=== PATIENT | female | born 1945 | race Caucasian/White ===

== ENCOUNTER → 2018-02-07 13:50 | Outpatient (CLI) | payer MEDICARE, OTHER, SELFPAY ==
--- NOTE | 2018-02-07 | DI.CT.S_ITS ---
PROCEDURE: CT ABDOMEN PELVIS W CON INDICATIONS: ENTEROGRAPHY ABNORMAL XRAY TECHNIQUE: After the administration of intravenous contrast, 5 mm thick sections acquired from the diaphragm to the symphysis. 5 mm coronal and sagittal reformats were acquired. For radiation dose reduction, the following was used: automated exposure control, adjustment of mA and/or kV according to patient size. COMPARISON: [facility], CR, L-SPINE 2-3 VIEWS, 08/17/2011, 6:55. [facility], RG, XR ABDOMEN 1V, 02/04/2018, 11:13. FINDINGS: Image quality: Excellent. ABDOMEN: Lung bases: Lung bases are clear. Heart size is normal. Solid organs: Liver is normal in size and enhancement. Gallbladder has been. Pneumobilia is present. Pancreas enhances normally. Spleen demonstrates innumerable low attenuation foci predominantly sub-centimeter, with the largest measuring 9 mm. No adrenal nodules. Kidneys demonstrate normal size and enhancement, without hydronephrosis. Peritoneum and bowel: There are scattered, mildly prominent fluid filled loops of small bowel in the anterior abdomen. Previously identified focal U-shaped loop in the left upper quadrant is less prominent. No free fluid or air. Significant stool is present within the rectum and colon. Nodes and vessels: No retroperitoneal or mesenteric adenopathy by size criteria. Aorta and inferior vena cava are normal in size. Miscellaneous: No ventral hernias. Lower lumbar posterior fixation is present. The right pedicular screw at the level of L4-5 and L5-S1 extends slightly beyond the anterior cortex of the vertebral body. PELVIS: Genitourinary: Bladder wall thickness is normal. Miscellaneous: No inguinal hernias or adenopathy. Bones: No suspicious bony lesions. No vertebral body compression fractures. IMPRESSION: 1. Significant colonic stool particularly within the rectum consistent with constipation. 2. Less prominent appearance of fluid filled small bowel loop as described above. However, there are scattered mildly prominent fluid filled loops of small bowel possibly compliance representative of ileus versus partial obstruction. 3. Pneumobilia as above. 4. Innumerable low attenuation foci within the spleen as above. This could be reflective of infection or inflammation. However other etiologies such as neoplasm, particularly up lymphoma should be considered if clinically appropriate. It is noted that there is no visualized adenopathy. Dictated by: Amanda Higgins M.D. on 02/07/2018 at 16:39 Approved by: Amanda Higgins M.D. on 02/07/2018 at 16:48
[2018-02-07 14:30] LABS: Estimated Glomerular Filt Rate > 60.0 mL/min (>60)
== END ==
PROVIDERS: Visit Provider Internal Medicine Gastroenterology
DX: R93.5 Abnormal findings on diagnostic imaging of other abdominal regions, including retroperitoneum (principal); K83.8 Other specified diseases of biliary tract
CPT/HCPCS: 36415; 74177; 82565

== ENCOUNTER 2018-09-24 21:19 | Emergency (ER) | payer MEDICARE, OTHER, SELFPAY ==
[2018-09-24 21:29] VITALS: BP 148/124; PULSE 85; RESP 15; TEMP 37.8; O2SAT 94
[2018-09-24 22:00] LABS: WBC Urine None Seen (0-5/HPF)
[2018-09-24 22:01] LABS: Appearance Urine UA CLEAR; Color Urine UA ORANGE
[2018-09-24] MEDS: FAMOTIDINE 20 MG/50 ML PIGGYBACK 200 MG IV (22:05)
[2018-09-24 22:08] LABS: Culture Indicated Urine Cult Not Indicated; RBC Urine 0-1/HPF (0-5/HPF)
[2018-09-24] MEDS: SODIUM CHLORIDE 0.9% 1,000 ML 1000 ML IV (22:08)
[2018-09-24] MEDS: diphenhydrAMINE 50 MG/ML VIAL 25 MG IV (22:08)
[2018-09-24 22:09] LABS: Bacteria Urine Occasional (0-1)
--- NOTE | 2018-09-24 22:25 | ED.ALLEREA ---
HPI - Allergic Reaction General Chief complaint: Allergic Reaction Stated complaint: MS FLARE Time Seen by Provider: 09/24/18 21:22 Source: patient Mode of arrival: wheelchair Limitations: no limitations History of Present Illness HPI narrative: 73-year-old female, former smoker with history of MS presents with a chief complaint of ongoing MS flare for the past few months and a possible allergic reaction to an antibiotic she was prescribed last week. This current MS flare started at least a month or 2 ago and includes increased spasticity and fatigue which is her normal presentation. She was seen and evaluated last week at an outside facility and had 3 days of IV Solu-Medrol ( 1000 mg per day ) and she was diagnosed with a urinary tract infection. She was prescribed Bactrim and had for gotten she has an allergy to sulfa. Since then she has been switch from Bactrim and placed nitrofurantoin. She has some redness and itching to her hands and a bit of his scratchy itchy rash on her abdomen. She denies any trouble swallowing or difficulty breathing. She has had no vomiting or diarrhea. She does have a low-grade fever and some back pain.. Her normal MS flare is fatigue and muscle spasm, but she has had at least one episode similar to this about a year or two ago. She denies any alcohol or street drugs. She takes no antipsychotics or other mental health drugs. MD complaint: allergic reaction Onset (ago): day(s) Exposure: medication Known history of allergy to: sulfa Symptoms: rash and itching Severity: mild Treatment prior to arrival: none Previous Allergic Reaction History: none Related Data Home Medications Medication Instructions Recorded Confirmed ALBUTEROL SULFATE (Ventolin / 0 INH PRN #0 02/21/06 Proventil) CLONAZEPAM (Klonopin) 0 PO PRN #0 02/21/06 Cetirizine Hydrochloride (Zyrtec) 10 mg PO #0 02/21/06 Esomeprazole Magnesium (Nexium) 40 mg PO BID #0 02/21/06 FLUTIC/SALMET 100/50 MCG (Advair 1 dose INH BID #0 02/21/06 100-50 Diskus) FUROSEMIDE (Lasix) 20 PO Q DAY #0 02/21/06 HYOSCYAMINE SULFATE (Levsin) 0.125 mg PO Q4HP #0 02/21/06 Oxycodone (Roxicodone) 5 mg PO PRN #0 02/21/06 POTASSIUM CHLORIDE (K-Dur) 40 meq PO BID #0 02/21/06 Venlafaxine Hydrochloride (Effexor) 75 mg PO Q DAY #0 02/21/06 [AVINZA] 3 OR BID #0 02/21/06 [COPAXINE] IM Q DAY #0 02/21/06 [PROVIGIL] PRN #0 02/21/06 Allergies Allergy/AdvReac Type Severity Reaction Status Date / Time No Known Drug Allergies Allergy Verified 09/24/18 21:28 Review of Systems Constitutional Denies chills, Denies fever(s), Denies lethargy and Denies weakness Comments: fatigue Eyes Denies change in vision, Denies eye discharge, Denies irritation and Denies loss of vision ENT Ears, Nose, Mouth, and Throat: Denies change in voice, Denies neck pain and Denies sore throat Cardiovascular Denies chest pain, Denies irregular heart rhythm, Denies lightheadedness, Denies palpitations, Denies dyspnea, Denies dyspnea on exertion and Denies orthopnea Respiratory Denies cough, Denies dyspnea, Denies dyspnea on exertion and Denies wheezing Gastrointestinal Gastrointestinal: Denies abdominal pain, Denies change in bowel habits, Denies diarrhea, Denies nausea and Denies vomiting Genitourinary Denies hematuria, Denies flank pain, Denies urinary incontinence and Denies urinary urgency Musculoskeletal Denies neck pain Comments: spasticity, ataxia Integumentary/Breasts Reports pruritus, Denies erythema, Reports rash and Denies wounds Neurologic Denies confusion, Denies loss of vision and Denies weakness Psychiatric Denies anxiety, Denies confusion, Denies depression, Denies homicidal ideation and Denies suicidal ideation Endocrine Denies palpitations Hematologic/Lymphatic Denies easy bruising Allergic/Immunologic Denies wheezing PFSH Medical History Multiple sclerosis (Acute) Exam Narrative Exam Narrative: 73-year-old female, restless, alert and oriented Initial Vital Signs Initial Vital Signs: Vital Signs Temperature 100.1 F H 09/24/18 21:29 Pulse Rate 85 09/24/18 21:29 Respiratory Rate 15 09/24/18 21:29 Blood Pressure 148/124 H 09/24/18 21:29 Pulse Oximetry 94 09/24/18 21:29 Const General: cooperative, well developed, in distress and disheveled Nutritional Appearance: well nourished Orientation: alert, awake, oriented x3 and not confused [facility] Head: normocephalic and atraumatic Ears: external ears normal Nose: external nose normal and No nasal discharge Face and sinus: sinuses nontender, face symmetric, no sinus tenderness and No dry mucous membranes Mouth: oral mucosae normal Eyes General: appearance normal, both eyes and all related structures Eyelids: eyelids normal Conjunctivae: conjunctivae normal Sclera: sclerae normal Pupils: PERRL EOM: EOM intact bilaterally Neck Neck: normal visual inspection, trachea midline, No lymphadenopathy, No midline deformity and No JVD Lymphatic: No lymphedema Chest Chest: normal inspection of the chest Resp Effort & Inspection: normal respiratory effort, able to speak in complete sentences, no respiratory distress and no use of accessory muscles Auscultation: clear to auscultation bilaterally, no rales, no rhonchi and no wheezes GI Inspection: non-distended Palpation: soft, no hepatosplenomegaly, No guarding, No pulsatile mass and No tender Auscultation: normal bowel sounds Back/Spine/Pelvis Back: No CVA tenderness Cervical Spine: cervical ROM normal and No pain with cervical ROM Thoracic/Lumbar Spine: thoracic and lumbar spine normal to inspection Skin General: no rashes or lesions noted, No jaundice and No petechiae Rashes: rashes noted ( minimal erythema to bilateral hands and abdomen, no urticaria) Neuro General: alert, awake, oriented x3 and gait abnormal Cranial Nerves: CN's II-XI intact bilaterally Cognition: normal cognition Speech: speech normal Gait: ataxic Sensory Exam: no sensory deficits noted Extrem General: full ROM, no clubbing, cyanosis or edema, no pedal edema and no calf tenderness Psych Appearance: well kempt Mental Status: mental status grossly normal Attitude: cooperative Thought Content: normal and suicidality Judgment: judgment good Course Orders Ordered: ED Orders 09/24/18 21:45 Urinalysis and Microscopic Stat 09/24/18 22:06 Complete Blood Count AUTO DIFF Stat Comprehensive Metabolic Panel Stat Procalcitonin Stat 09/25/18 00:24 Troponin & CK Cardiac Panel Stat Discontinued Medications Diphenhydramine HCl (Benadryl) 25 mg IV NOW ONE Stop: 09/24/18 21:46 Last Admin: 09/24/18 22:08 Dose: 25 mg Sodium Chloride (Normal Saline 0.9%) 1,000 mls @ 1,000 mls/hr IV BOLUS ONE Stop: 09/24/18 22:44 Last Infusion: 09/25/18 01:33 Dose: 1,000 mls/hr Admin: 09/24/18 22:08 Dose: 1,000 mls/hr Famotidine (Pepcid) 20 mg in 50 mls @ 200 mls/hr IV NOW ONE Stop: 09/24/18 21:59 Last Infusion: 09/24/18 22:20 Dose: 200 mls/hr Admin: 09/24/18 22:05 Dose: 200 mls/hr Methylprednisolone 1,000 mg/ (Sodium Chloride) 258 mls @ 258 mls/hr IV NOW ONE Stop: 09/24/18 22:22 Last Infusion: 09/24/18 23:48 Dose: 258 mls/hr Admin: 09/24/18 22:35 Dose: 258 mls/hr Methylprednisolone (Solu-Medrol 125 Mg Vial) 1,000 mg IV NOW ONE Stop: 09/24/18 21:46 Last Admin: 09/24/18 22:23 Dose: Reevaluation(s) Reevaluation #1: patient shows tremendous improvement of movement disorder after steroids, but still has trouble ambulating. Call to Dr. Tung Kay's office and his partner Dr. Payne called back. She suggests that though this isn't typical presentation of MS flare the patient has had one similar episode and she improved with steroids, so if she is well enough she may go home. Reevaluation #2: patient is unsafe for discharge given difficulty ambulating. Call to our hospitalist whom is not comfortable keeping patient here given lack of neurology. Call to [facility] and they have paged Dr. Tika Sanchez prior to hospitalist Reevaluation #3: Called the patient room. She is feeling much better, ambulating without any apparent difficulty. She is awake, alert and oriented. She has full capacity to make her own decisions. She states that she no longer wishes to pursue transfer. She refuses to stay here and demands that she goes home. She is not making any anger your on reasonable request. She does states she has been dealing with this for a very long time and feels much better and wants to be at home. She has multiple family members that can be with her at home. She understands that she may return immediately for any change of heart. She has filled out [employer] [facility] [employer] paperwork. I have called [facility] and cancel transfer process Vital Signs - 8 hr 09/24/18 21:29 09/24/18 23:00 09/25/18 01:59 Temperature 100.1 F H 98.9 F Pulse Rate 85 70 88 Respiratory Rate 15 18 18 Blood Pressure 148/124 H Blood Pressure [Right Arm] 95/52 L 115/45 L Pulse Oximetry 94 94 96 MDM - Allergic Reaction Lab Data Result diagrams: 09/24/18 22:06 09/24/18 22:06 Lab Results 09/24/18 09/24/18 09/24/18 Range/Units 21:45 22:06 22:06 WBC 7.4 (4.5-11.0) X10^3/uL RBC 4.20 (4.0-5.2) X10^6/uL Hgb 12.1 (12.0-16.0) g/dL Hct 36.1 (36-46) % MCV 86.1 (80-100) fL MCH 28.8 (26-34) PG MCHC 33.4 (30-36) % RDW 14.8 (11.6-14.8) % Plt Count 188 (150-400) X10^3/uL Neut % (Auto) 74.1 (50-75) % Lymph % (Auto) 8.2 L (25-40) % [place] % (Auto) 15.4 H (3-14) % Eos % (Auto) 2.2 (2-4) % Baso % (Auto) 0.1 (0-2) % Neut # (Auto) 5500 (3845-6333) /uL Lymph # (Auto) 600 L (5555-9474) /uL [place] # (Auto) 1100 H (0-900) /uL Eos # (Auto) 200 (0-450) /uL Baso # (Auto) 0 (0-100) /uL Sodium (137-145) mmol/L Potassium (3.4-5.1) mmol/L Chloride (98-107) mmol/L Carbon Dioxide (22-32) mmol/L BUN (7-17) mg/dL Creatinine (0.52-1.04) mg/dL Estimated GFR (>60) mL/min BUN/Creatinine Ratio (6-22) Glucose (80-110) mg/dL Calcium (8.4-10.2) mg/dL Total Bilirubin (0.2-1.3) mg/dL AST (14-36) IU/L ALT (9-52) IU/L Alkaline Phosphatase (38-126) U/L Total Creatine Kinase (30-135) U/L CK-MB (CK-2) (<2.37) ng/mL CK-MB (CK-2) Rel Index (1.5-5.0) % Troponin I (0.01-0.034) ng/mL Total Protein (6.3-8.2) g/dL Albumin (3.5-5.0) g/dL Globulin (1.7-4.1) g/dL Albumin/Globulin Ratio (1.0-2.8) Procalcitonin 0.06 (<0.5) ng/mL Urine Color [place] Urine Appearance Clear Urine pH 7.0 (4.5-8.0) Ur Specific [place] 1.010 (1.000-1.035) Urine Protein (Negative) Urine Glucose (UA) TNP Urine Ketones TNP Urine Occult Blood TNP Urine Nitrate TNP Urine Bilirubin TNP Urine Urobilinogen TNP Ur Leukocyte Esterase TNP Urine RBC 0-1/hpf (0-5/HPF) Urine WBC None seen (0-5/HPF) Urine Bacteria Occasional (0-1) (None) Ur Culture Indicated? Cult not indicated 09/24/18 09/24/18 Range/Units 22:06 22:06 WBC (4.5-11.0) X10^3/uL RBC (4.0-5.2) X10^6/uL Hgb (12.0-16.0) g/dL Hct (36-46) % MCV (80-100) fL MCH (26-34) PG MCHC (30-36) % RDW (11.6-14.8) % Plt Count (150-400) X10^3/uL Neut % (Auto) (50-75) % Lymph % (Auto) (25-40) % [place] % (Auto) (3-14) % Eos % (Auto) (2-4) % Baso % (Auto) (0-2) % Neut # (Auto) (7282-9006) /uL Lymph # (Auto) (1326-4646) /uL [place] # (Auto) (0-900) /uL Eos # (Auto) (0-450) /uL Baso # (Auto) (0-100) /uL Sodium 138 (137-145) mmol/L Potassium 4.2 (3.4-5.1) mmol/L Chloride 102 (98-107) mmol/L Carbon Dioxide 27 (22-32) mmol/L BUN 18 H (7-17) mg/dL Creatinine 0.90 (0.52-1.04) mg/dL Estimated GFR > 60.0 (>60) mL/min BUN/Creatinine Ratio 20.0 (6-22) Glucose 87 (80-110) mg/dL Calcium 9.0 (8.4-10.2) mg/dL Total Bilirubin 0.6 (0.2-1.3) mg/dL AST 30 (14-36) IU/L ALT 28 (9-52) IU/L Alkaline Phosphatase 115 (38-126) U/L Total Creatine Kinase 644 H (30-135) U/L CK-MB (CK-2) 5.43 H (<2.37) ng/mL CK-MB (CK-2) Rel Index 0.8 L (1.5-5.0) % Troponin I 0.013 (0.01-0.034) ng/mL Total Protein 6.6 (6.3-8.2) g/dL Albumin 4.1 (3.5-5.0) g/dL Globulin 2.5 (1.7-4.1) g/dL Albumin/Globulin Ratio 1.6 (1.0-2.8) Procalcitonin (<0.5) ng/mL Urine Color Urine Appearance Urine pH (4.5-8.0) Ur Specific [place] (1.000-1.035) Urine Protein (Negative) Urine Glucose (UA) Urine Ketones Urine Occult Blood Urine Nitrate Urine Bilirubin Urine Urobilinogen Ur Leukocyte Esterase Urine RBC (0-5/HPF) Urine WBC (0-5/HPF) Urine Bacteria (None) Ur Culture Indicated? Discharge Plan Departure Patient Disposition: Left Against Medical Advice Clinical Impression: Multiple sclerosis exacerbation Instructions: Multiple Sclerosis -- Adult Activity Restrictions/Additional Instructions: *You have been diagnosed with [ Acute MS Flare ] *What to do: *Follow up with your Neurologist as soon as possible, call for an appointment. Let them know you were seen in the Emergency Department and that we ask that you be seen in follow up *Return to ER if you should have any new, worsening or concerning symptoms Prescriptions: No Action [AVINZA] 3 OR BID Qty: 0 RF: 0 Esomeprazole Magnesium (Nexium) 40 mg PO BID Qty: 0 RF: 0 [COPAXINE] IM Q DAY Qty: 0 RF: 0 FUROSEMIDE (Lasix) 20 PO Q DAY Qty: 0 RF: 0 POTASSIUM CHLORIDE (K-Dur) 40 meq PO BID Qty: 0 RF: 0 Venlafaxine Hydrochloride (Effexor) 75 mg PO Q DAY Qty: 0 RF: 0 HYOSCYAMINE SULFATE (Levsin) 0.125 mg PO Q4HP Qty: 0 RF: 0 CLONAZEPAM (Klonopin) PO PRN Qty: 0 RF: 0 Cetirizine Hydrochloride (Zyrtec) 10 mg PO Qty: 0 RF: 0 [PROVIGIL] PRN Qty: 0 RF: 0 Oxycodone (Roxicodone) 5 mg PO PRN Qty: 0 RF: 0 ALBUTEROL SULFATE (Ventolin / Proventil) INH PRN Qty: 0 RF: 0 FLUTIC/SALMET 100/50 MCG (Advair 100-50 Diskus) 1 dose INH BID Qty: 0 RF: 0 Stand Alone Forms: Against Medical Advice
[2018-09-24 22:32] LABS: Add Manual Diff / Slide Review NO; Basophils Absolute Auto 0 /uL (0-100); Basophils Percent Auto 0.1 % (0-2); Eosinophils Absolute Auto 200 /uL (0-450); Eosinophils Percent Auto 2.2 % (2-4); Hematocrit 36.1 % (36-46); Hemoglobin 12.1 g/dL (12.0-16.0); Lymphocytes Absolute Auto 600 /uL (1100-4500); Lymphocytes Percent Auto 8.2 % (25-40); Mean Corpuscular HGB Conc 33.4 % (30-36); Mean Corpuscular Hemoglobin 28.8 PG (26-34); Mean Corpuscular Volume 86.1 fL (80-100); Monocytes Absolute Auto 1100 /uL (0-900); Monocytes Percent Auto 15.4 % (3-14); Neutrophils Absolute Auto 5500 /uL (1500-7000); Neutrophils Percent Auto 74.1 % (50-75); Platelet Count 188 X10^3/uL (150-400); Red Cell Distribution Width 14.8 % (11.6-14.8); White Blood Cell Count 7.4 X10^3/uL (4.5-11.0)
[2018-09-24] MEDS: methylPREDNISolone 1,000 MG in SODIUM CHLORIDE 0.9% 250 ML 258 ML IV (22:35)
[2018-09-24 22:40] LABS: Alanine Aminotransferase 28 IU/L (9-52); Albumin 4.1 g/dL (3.5-5.0); Albumin Globulin Ratio 1.6 (1.0-2.8); Alkaline Phosphatase 115 U/L (38-126); Aspartate Aminotransferase 30 IU/L (14-36); Bilirubin Total 0.6 mg/dL (0.2-1.3); Blood Urea Nitrogen 18 mg/dL (7-17); Carbon Dioxide 27 mmol/L (22-32); Chloride 102 mmol/L (98-107); Estimated Glomerular Filt Rate > 60.0 mL/min (>60); Globulin 2.5 g/dL (1.7-4.1); Glucose 87 mg/dL (80-110); HEMOLYSIS < 15 (0-50); Potassium 4.2 mmol/L (3.4-5.1); Sodium 138 mmol/L (137-145); Total Protein 6.6 g/dL (6.3-8.2)
[2018-09-24 23:00] VITALS: BP 95/52; PULSE 70; RESP 18; O2SAT 94
[2018-09-24 23:25] LABS: Procalcitonin 0.06 ng/mL (<0.5)
[2018-09-25 00:39] LABS: Creatine Kinase 644 U/L (30-135)
--- NOTE | 2018-09-25 00:41 | PC.NURSE ---
Patient was able to walk to the bathroom, going very slowly and swaying a lot more than her usual she was saying. Patient self cathed in the bathroom after not being able to go.
[2018-09-25 00:52] LABS: Troponin I 0.013 ng/mL (0.01-0.034)
[2018-09-25 00:54] LABS: CKMB % Relative Index 0.8 % (1.5-5.0); Creatine Kinase MB 5.43 ng/mL (<2.37)
--- NOTE | 2018-09-25 00:55 | PC.NURSE ---
PT states possible allergic reaction to Bactrim for UTI. PT forgot she has allergy to sulfa, was switched from Bactrim and placed nitrofurantoinan last week. Reports itching to hands and small amount of itching to abdomen, speaking in full sentances, denies difficulty breathing or CP. Hands appear red and pt has small red irritation to abdomen. Pt also reports having an MS flare for the past couple of months that has caused her increased fatigue and muscle spasticity. Pt has moments of ataxia and moments when she can focus and control her spasticity. Pt states she has no new pain and reports chronic back pain. Pupils are equal and reactive bi laterally.
[2018-09-25 01:59] VITALS: BP 115/45; PULSE 88; RESP 18; TEMP 37.2; O2SAT 96
--- NOTE | 2018-09-25 02:08 | PC.NURSE ---
in room pt stating she's feeling better and wants to go home. Pt declining hospital admission or transfer. Friend at bedside states she's willing to take pt home.
== END 2018-09-25 02:20 | disposition left against medical advice (07) ==
PROVIDERS: Emergency Provider Emergency Medicine
DX: G35 Multiple sclerosis (principal)
CPT/HCPCS: 36591; 80053; 81001; 82550; 82553; 84145; 84484; 85025; 96361; 96365; 96367; 96375; 99284; J1200; J2930

== ENCOUNTER 2019-10-17 14:04 | Emergency (ER) | payer MEDICARE, OTHER, SELFPAY ==
[2019-10-17 14:35] VITALS: BP 147/65; PULSE 89; RESP 16; TEMP 37; O2SAT 98; BMI 20.9
--- NOTE | 2019-10-17 14:48 | DI.RAD.S_ITS ---
PROCEDURE: XR SHOULDER LT MIN 2V INDICATIONS: hit left arm 10days ago increase pain TECHNIQUE: 3 views of the shoulder were acquired. COMPARISON: [facility], CR, CHEST 2 VIEW, 08/17/2011, 6:44. FINDINGS: Bones: No displaced fractures or dislocations are identified. No suspicious osseous lesions are present. There mild degenerative changes of the glenohumeral joint. Moderate degenerative changes appear to be present involving the acromioclavicular joint. Soft tissues: Homogeneous calcifications are seen overlying the greater tuberosity of the humeral head, which are predominantly evident posteriorly. Aortic atherosclerosis is incidentally noted. Otherwise, the overlying soft tissues are unremarkable. IMPRESSION: 1. 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 No fractures. 2. Calcific tendinitis involving the infraspinatus tendon is suspected. Please correlate clinically. Dictated by: Moreno Ríos M.D. on 10/17/2019 at 14:51 Approved by: Moreno Ríos M.D. on 10/17/2019 at 14:53
--- NOTE | 2019-10-17 14:49 | DI.RAD.S_ITS ---
PROCEDURE: XR HUMERUS LT 2V INDICATIONS: left arm injury 10days ago. TECHNIQUE: 2 views of the humerus were acquired. COMPARISON: None. FINDINGS: Bones: No fractures or dislocations. No suspicious bony lesions. Soft tissues: Again, homogeneous calcifications overlying the posterior margin of the humeral head is identified. Otherwise, the overlying soft tissues are unremarkable. IMPRESSION: No acute fractures of the left humerus. Dictated by: Moreno Ríos M.D. on 10/17/2019 at 14:53 Approved by: Moreno Ríos M.D. on 10/17/2019 at 14:53
[2019-10-17 16:17] VITALS: BP 148/70; PULSE 84; RESP 20; O2SAT 93
--- NOTE | 2019-10-17 16:18 | ED.UPPEXIN ---
HPI - Extremity Injury (Upper) General Chief Complaint: Extremity Injury, Upper Stated Complaint: left shoulder pain, passing out from pain Time Seen by Provider: 10/17/19 16:17 Source: patient Mode of arrival: Ambulatory Limitations: no limitations History of Present Illness HPI narrative: 74-year-old female smoker with history of MS and chronic pain presents with a friend in the chief complaint of gradually worsening left shoulder pain. Few days ago she was walking and ran her shoulder into a doorjamb and had some pain but did not necessarily think too much of it. Her symptoms improved but then few days later her pain started worsening. She has severe pain with any range of motion. She denies any numbness, tingling or weakness. She has significant pain and is concerned since she has a fracture. MD complaint: injury to: left and shoulder Onset (ago): day(s) Other injuries: none Handedness: right Place: home Severity: moderate Relieving factors: immobilization and rest Exacerbating factors: movement of extremity Context: direct blow Associated symptoms: denies other symptoms Related Data Home Medications Medication Instructions Recorded Confirmed ALBUTEROL SULFATE (Ventolin / 0 INH PRN #0 02/21/06 Proventil) CLONAZEPAM (Klonopin) 0 PO PRN #0 02/21/06 Cetirizine Hydrochloride (Zyrtec) 10 mg PO #0 02/21/06 Esomeprazole Magnesium (Nexium) 40 mg PO BID #0 02/21/06 FLUTIC/SALMET 100/50 MCG (Advair 1 dose INH BID #0 02/21/06 100-50 Diskus) FUROSEMIDE (Lasix) 20 PO Q DAY #0 02/21/06 HYOSCYAMINE SULFATE (Levsin) 0.125 mg PO Q4HP #0 02/21/06 Oxycodone (Roxicodone) 5 mg PO PRN #0 02/21/06 POTASSIUM CHLORIDE (K-Dur) 40 meq PO BID #0 02/21/06 Venlafaxine Hydrochloride (Effexor) 75 mg PO Q DAY #0 02/21/06 [AVINZA] 3 OR BID #0 02/21/06 [COPAXINE] IM Q DAY #0 02/21/06 [PROVIGIL] PRN #0 02/21/06 Previous Rx's Medication Instructions Recorded ketorolac 10 mg PO Q6H PRN #14 tab 10/17/19 Allergies Allergy/AdvReac Type Severity Reaction Status Date / Time baclofen Allergy Severe Hallucinati Verified 10/17/19 14:47 ng levofloxacin [From Levaquin] Allergy Severe Joint Pain Verified 10/17/19 14:47 Penicillins Allergy Severe Hives Verified 10/17/19 14:46 Sulfa (Sulfonamide Allergy Severe Anaphylaxis Verified 10/17/19 14:47 Antibiotics) Review of Systems Constitutional Constitutional: Denies chills, Denies fatigue, Denies fever(s), Denies frequent falls, Denies lethargy and Denies weakness Eyes Eyes: Denies change in vision, Denies eye discharge, Denies irritation and Denies loss of vision ENT Ears, Nose, Mouth, and Throat: Denies change in voice, Denies dizziness, Denies neck pain, Denies sore throat and Denies throat swelling Cardiovascular Cardiovascular: Denies chest pain, Denies irregular heart rhythm, Denies lightheadedness, Denies palpitations, Denies dyspnea, Denies dyspnea on exertion and Denies orthopnea Respiratory Respiratory: Denies cough, Denies dyspnea, Denies dyspnea on exertion and Denies wheezing Gastrointestinal Gastrointestinal: Denies abdominal pain, Denies change in bowel habits, Denies diarrhea, Denies nausea and Denies vomiting Genitourinary Genitourinary: Denies hematuria, Denies flank pain, Denies urinary incontinence and Denies urinary urgency Musculoskeletal Musculoskeletal: Denies back pain, Reports limited range of motion, Denies muscle weakness, Denies neck pain, Denies numbness and Denies tingling Integumentary/Breasts Skin/Breast: Denies pruritus, Denies erythema, Denies rash and Denies wounds Neurologic Neurologic: Denies behavioral changes, Denies confusion, Denies dizziness, Denies frequent falls, Denies loss of vision, Denies numbness, Denies tingling and Denies weakness Psychiatric Psychiatric: Denies anxiety, Denies behavioral changes, Denies confusion, Denies depression, Denies homicidal ideation and Denies suicidal ideation Endocrine Endocrine: Denies fatigue, Denies flushing and Denies palpitations Hematologic/Lymphatic Hematologic/Lymphatic: Denies easy bruising Allergic/Immunologic Allergic/Immunologic: Denies urticaria, Denies throat swelling and Denies wheezing Patient History Medical History Multiple sclerosis (Acute) tobacco type: cigars Substance Use Type: does not use Exam Narrative Exam Narrative: GEN: AOx3 and in mild distress EYES: Pupils are equal, round, and reactive to light and accommodation. Extraoccular muscles are intact bilaterally. There is no subconjunctival hemorrhage or exudate. CHEST: Lungs are clear to auscultation bilaterally and free of wheezes, rales, or rhonchi. Heart rate is regular rhythm, there are no murmurs, clicks, rubs, or gallops. There is no chest wall tenderness. ABD: Abdomen is soft and nontender. There is no guarding or rebound. Bowel sounds are normal in all 4 quadrants. There is no mass or organomegaly. EXT: Decreased range of motion of left shoulder secondary to pain. No pain along the palpation of clavicle. No pain along distal humerus, elbow or wrist. She has full strength with flexion extension of elbow and wrist. Full strength with extension of fingers and use of lumbar rolls. No numbness, tingling or weakness. Cap refill and radial pulses fully intact. SKIN: Warm, pink, and dry. No erythema or rash Initial Vital Signs Initial Vital Signs: Vital Signs Temperature 98.6 F 10/17/19 14:35 Pulse Rate 89 10/17/19 14:35 Respiratory Rate 16 10/17/19 14:35 Blood Pressure 147/65 H 10/17/19 14:35 Pulse Oximetry 98 10/17/19 14:35 Procedures Orthopedic Splinting/Casting Injury #1: Side: left Upper Extremity Injury Location: shoulder Upper Extremity Immobilizer: sling/shoulder immobilizer Post splinting neuro exam: intact Post splinting vascular exam: intact Placed by: Nursing Course Orders Ordered: ED Orders 10/17/19 14:48 XR shoulder LT min 2V Stat 10/17/19 14:49 XR humerus LT 2V Stat Discontinued Medications Ketorolac Tromethamine (Toradol) 60 mg IM NOW ONE Stop: 10/17/19 16:30 Vital Signs Vital signs: Vital Signs - 8 hr 10/17/19 14:35 10/17/19 16:17 Temperature 98.6 F Pulse Rate 89 84 Respiratory Rate 16 20 Blood Pressure 147/65 H Blood Pressure [Right Arm] 148/70 H Pulse Oximetry 98 93 MDM - Extremity Injury (Upper) Imaging Data Extremity x-ray #1: Radiologist's Impression: [address] [address] XRay Report Signed Patient: Teressa Baca R#: [id number] : 7Acct:[id number] Age/Sex: 74 / FDate of Service: 10/17/19 Loc: ED Accession Number: [id number] Procedure: XR humerus LT 2V Ordering Provider: Moe Reyes D.O. PROCEDURE: XR HUMERUS LT 2V INDICATIONS: left arm injury 10days ago. TECHNIQUE: 2 views of the humerus were acquired. COMPARISON: None. FINDINGS: Bones: No fractures or dislocations. No suspicious bony lesions. Soft tissues: Again, homogeneous calcifications overlying the posterior margin of the humeral head is identified. Otherwise, the overlying soft tissues are unremarkable. IMPRESSION: No acute fractures of the left humerus. Dictated by: Moreno Ríos M.D. on 10/17/2019 at 14:53 Approved by: Moreno Ríso M.D. on 10/17/2019 at 14:[address] [address] XRay Report Signed Patient: Teressa Baca R#: [id number] : 7At:[id number] Age/Sex: 74 / FDate of Service: 10/17/19 Loc: ED Accession Number: [id number] Procedure: XR shoulder LT min 2V Ordering Provider: Moe Reyes D.O. PROCEDURE: XR SHOULDER LT MIN 2V INDICATIONS: hit left arm 10days ago increase pain TECHNIQUE: 3 views of the shoulder were acquired. COMPARISON: [facility], CR, CHEST 2 VIEW, 08/17/2011, 6:44. FINDINGS: Bones: No displaced fractures or dislocations are identified. No suspicious osseous lesions are present. There mild degenerative changes of the glenohumeral joint. Moderate degenerative changes appear to be present involving the acromioclavicular joint. Soft tissues: Homogeneous calcifications are seen overlying the greater tuberosity of the humeral head, which are predominantly evident posteriorly. Aortic atherosclerosis is incidentally noted. Otherwise, the overlying soft tissues are unremarkable. IMPRESSION: 1. Hhdu-cy-[id number] degenerative changes of the left shoulder joints. No fractures. 2. Calcific tendinitis involving the infraspinatus tendon is suspected. Please correlate clinically. Dictated by: Moreno Ríos M.D. on 10/17/2019 at 14:51 Approved by: Moreno Ríos M.D. on 10/17/2019 at 14:53 Discharge Plan Departure Patient Disposition: Home Clinical Impression: Left shoulder strain Qualifiers: Encounter type: initial encounter Qualified Code(s): S46.912A - Strain of unspecified muscle, fascia and tendon at shoulder and upper arm level, left arm, initial encounter Instructions: DI for Shoulder Sprain Activity Restrictions/Additional Instructions: *You have been diagnosed with [shoulder pain, possible sprain versus calcific tendonitis versus rotator cuff injury.] *What to do: *Take medications as directed *Follow up with [facility] in 2-3 days, call for an appointment. Let them know you were seen in the Emergency Department and that we ask that you be seen in follow up *Return to ER if you should have any new, worsening or concerning symptoms Prescriptions: New ketorolac 10 mg tablet 10 mg PO Q6H PRN (Reason: pain) Qty: 14 RF: 0 No Action [AVINZA] 3 OR BID Qty: 0 RF: 0 Esomeprazole Magnesium (Nexium) 40 mg PO BID Qty: 0 RF: 0 [COPAXINE] IM Q DAY Qty: 0 RF: 0 FUROSEMIDE (Lasix) 20 PO Q DAY Qty: 0 RF: 0 POTASSIUM CHLORIDE (K-Dur) 40 meq PO BID Qty: 0 RF: 0 Venlafaxine Hydrochloride (Effexor) 75 mg PO Q DAY Qty: 0 RF: 0 HYOSCYAMINE SULFATE (Levsin) 0.125 mg PO Q4HP Qty: 0 RF: 0 CLONAZEPAM (Klonopin) 0 PO PRN Qty: 0 RF: 0 Cetirizine Hydrochloride (Zyrtec) 10 mg PO Qty: 0 RF: 0 [PROVIGIL] PRN Qty: 0 RF: 0 Oxycodone (Roxicodone) 5 mg PO PRN Qty: 0 RF: 0 ALBUTEROL SULFATE (Ventolin / Proventil) 0 INH PRN Qty: 0 RF: 0 FLUTIC/SALMET 100/50 MCG (Advair 100-50 Diskus) 1 dose INH BID Qty: 0 RF: 0 Referrals: Haleigh Fox [Primary Care Provider] - Cary Gresham MD [Physician] -
[2019-10-17] MEDS: KETOROLAC 60 MG/2 ML VIAL IM (17:05)
== END 2019-10-17 16:58 | disposition home or self-care (01) ==
PROVIDERS: Emergency Provider Emergency Medicine; PCP Internal Medicine
DX: S46.912A Strain of unspecified muscle, fascia and tendon at shoulder and upper arm level, left arm, initial encounter (principal); W22.8XXA Striking against or struck by other objects, initial encounter
CPT/HCPCS: 73030; 73060; 96372; 99283; J1885

== ENCOUNTER → 2019-10-23 17:11 | Outpatient (CLI) | payer MEDICARE, OTHER, SELFPAY ==
--- NOTE | 2019-10-23 17:13 | DI.MRI.S_ITS ---
PROCEDURE: MR CERVICAL SPINE WO CON INDICATIONS: cervicalgia TECHNIQUE: Noncontrast sagittal T1 spin echo and T2 fast spin echo, sagittal STIR, foraminal oblique sagittal T2 fast spin echo, and axial gradient echo or T2 fast spin echo through the cervical spine. COMPARISON: None. FINDINGS: Image quality: Excellent. Alignment and Curvature: Mild degenerative anterolisthesis of C3 on C4 measuring 3 mm. Bone Marrow: Marrow demonstrates normal overall signal. Spinal Cord: Visualized spinal cord has normal size and signal. No cerebellar tonsillar herniation. Paraspinous Soft Tissues: No paravertebral masses. Prevertebral soft tissues are normal in thickness. C2-C3: No canal stenosis. Left facet hypertrophy and uncovertebral joint hypertrophy results in moderate left foraminal narrowing and mild flattening deformity on the exiting left C3 nerve root. C3-C4: Minimal central posterior disc protrusion. Facet and ligament hypertrophy. Mild canal stenosis. There is mild to moderate right foramina narrowing secondary to facet hypertrophy and mild flattening deformity on the exiting right C4 nerve root. Marked left facet and uncovertebral joint hypertrophy results in moderate to severe left foraminal narrowing and impingement on the left C4 nerve root. Reference image 14 of series 7. C4-C5: Small central posterior disc protrusion and possible osteophyte indenting on the ventral cord. Mild canal stenosis. Bilateral facet hypertrophy. Moderate bilateral foraminal narrowing with flattening deformity on the exiting bilateral C5 nerve roots. C5-C6: Moderate central posterior disc protrusion indents the ventral cord. Increased signal within the disc protrusion suggests that this may be relatively acute. There is moderate resulting canal stenosis. Bilateral uncovertebral joint hypertrophy and facet hypertrophy. Moderate right foraminal narrowing with flattening deformity upon the exiting right C6 nerve root. Mild to moderate left foraminal narrowing. C6-C7: Mild disc bulge. No canal stenosis. Bilateral uncovertebral joint hypertrophy. Mild to moderate bilateral foraminal narrowing. C7-T1: No canal stenosis or foraminal stenosis. IMPRESSION: 1. A moderate central posterior disc protrusion at C5-C6 results in moderate canal stenosis. 2. Canal stenosis is mild at L3-L4 and L4-L5. 3. Multilevel facet arthropathy. 4. Multilevel foraminal narrowing as described above. Findings include moderate left foraminal narrowing at C2-C3, moderate to severe left foraminal narrowing at C3-C4, moderate bilateral foraminal narrowing at C4-C5, and moderate right foraminal narrowing at C5-C6. Dictated by: Thiago Jefferson M.D. on 10/26/2019 at 9:14 Approved by: Thiago Jefferson M.D. on 10/26/2019 at 9:23
== END ==
PROVIDERS: PCP Internal Medicine; Referring Provider Orthopaedic Surgery; Visit Provider Orthopaedic Surgery
DX: M50.222 Other cervical disc displacement at C5-C6 level (principal); M47.812 Spondylosis without myelopathy or radiculopathy, cervical region; M48.02 Spinal stenosis, cervical region
CPT/HCPCS: 72141

== ENCOUNTER → 2020-08-31 08:15 | Outpatient (CLI) | payer MEDICARE, OTHER, SELFPAY ==
--- NOTE | 2020-08-31 | DI.MRI.S_ITS ---
PROCEDURE: MR KNEE LT WO CON INDICATIONS: Unspecified internal derangement of left knee TECHNIQUE: Noncontrast sagittal PD fast spin echo and T2 fast spin echo with fat saturation, sagittal 3-D FLASH with fat saturation; coronal T1 spin echo and PD fast spin echo with fat saturation, and axial PD fast spin echo with fat saturation through the knee. COMPARISON: None. FINDINGS: Image quality: Excellent. Menisci: Complex oblique tear involving posterior horn of medial meniscus is seen extending to both superior and inferior articulating surfaces. There is no evidence of focal lateral meniscal tear.. The meniscal root ligaments appear intact. Cruciate ligaments: The anterior and posterior cruciate ligaments appear intact. Medial structures: The medial collateral ligament appears intact. The posterior oblique ligament, semimembranosus tendon insertions, oblique popliteal ligament, and meniscocapsular junction appear intact. Visualized portions of the pes anserinus tendons appear normal. No abnormal bursal fluid. Lateral structures: The lateral collateral ligament, long and short heads of the biceps femoris tendon appear intact. The popliteus tendon appears normal; the popliteofibular ligament appears intact. The posterosuperior and anteroinferior popliteomeniscal fascicles appear intact. The arcuate and fabellofibular ligaments appear intact, on either side of the lateral inferior geniculate artery. Iliotibial band appears normal. Anterior structures: The quadriceps and patellar tendons appear intact. Patellar alignment is normal. No femoral trochlear dysplasia or ventral trochlear prominence. No edema in the infrapatellar fat pad. Bones and cartilage: No bone marrow contusions or fractures. Mild tricompartmental osteoarthritis and low-grade chondromalacia is seen more prominent in medial femoral tibial compartment and lateral facet of patella cartilage. Joint space: There is small amount of joint fluid. No Gomez's cyst. Normal appearing synovial plicae are incidentally noted. IMPRESSION: 1. Complex oblique tear involving posterior horn of medial meniscus extending to both superior and inferior articulating surfaces. No focal lateral meniscal tear. 2. Cruciate ligaments are intact. 3. Mild tricompartmental osteoarthritis and low-grade chondromalacia more prominent in medial femoral tibial compartment. Small joint effusion. Dictated by: Neil Montalvo M.D. on 08/31/2020 at 10:11 Approved by: Neil Montalvo M.D. on 08/31/2020 at 10:12
== END ==
PROVIDERS: PCP Internal Medicine; Referring Provider Internal Medicine; Visit Provider Orthopaedic Surgery
DX: S83.232A Complex tear of medial meniscus, current injury, left knee, initial encounter (principal); M17.12 Unilateral primary osteoarthritis, left knee; M94.262 Chondromalacia, left knee; M25.462 Effusion, left knee
CPT/HCPCS: 73721

== ENCOUNTER → 2020-10-04 12:29 | Outpatient (ROUT) | payer MEDICARE, OTHER, SELFPAY | PROVIDERS: PCP Internal Medicine; Visit Provider Dermatology | DX: S81.809A Unspecified open wound, unspecified lower leg, initial encounter (principal) | CPT/HCPCS: 87070; 87205 ==

== ENCOUNTER → 2021-02-23 10:32 | Outpatient (CLI) | payer MEDICARE, OTHER, SELFPAY ==
--- NOTE | 2021-02-23 | DI.CT.S_ITS ---
PROCEDURE: CT ABDOMEN PELVIS W CON INDICATIONS: Other chronic pancreatitis TECHNIQUE: After the administration of oral and intravenous contrast, axial sections were acquired from the lung bases to the pubic symphysis. Coronal and sagittal reformats were performed. For radiation dose reduction, the following was used: automated exposure control, adjustment of mA and/or kV according to patient size. COMPARISON:[facility], CT, CT ABDOMEN PELVIS W CON, 02/07/2018, 15:54. FINDINGS: Image quality: Excellent. Lung bases: Unremarkable. Linear scarring is again noted. Heart: No significant findings. ABDOMEN: Liver: The liver demonstrates pneumobilia, previously the case 02/07/18.. Gallbladder: The gallbladder has been previously resected Biliary ducts: [id number] pneumobilia. This has been previously present. Pancreas: Unremarkable. Spleen: The spleen contains numerous small sub cm hypodensities but this had pattern has been previously present in 2018. . Adrenal Glands: Unremarkable. Kidneys and Ureters: Unremarkable. Stomach and Bowel: Stomach, small bowel loops, and colon are unremarkable. Peritoneum: No abnormal intraperitoneal fluid. No free air. Ventral Wall: No hernia. Abdominal Nodes: No retroperitoneal or mesenteric adenopathy by size criteria. Vessels: Aorta and inferior vena cava are normal in size. PELVIS: Pelvic Organs: Unremarkable. Bladder: Unremarkable. Pelvic Nodes: No enlarged lymph nodes. Miscellaneous: No inguinal hernias are seen. Bones: Prior spine fusion surgery, previously the case also.. IMPRESSION: No appreciable roving changer time, mild pneumobilia in this patient has undergone prior cholecystectomy, and also note is made of stable appearing multiple small spleen nodules, each sub cm. Old granulomatous disease may explain this appearance. Dictated by: Popeye Yates M.D. on 02/23/2021 at 14:28 Approved by: Popeye Yates M.D. on 02/23/2021 at 14:34
[2021-02-23 11:13] LABS: BUN Creatinine Ratio 23.4 (6-22); Blood Urea Nitrogen 15 mg/dL (7-17); Estimated Glomerular Filt Rate > 60.0 mL/min (>60)
== END ==
PROVIDERS: PCP Internal Medicine; Referring Provider Internal Medicine Gastroenterology; Visit Provider Internal Medicine Gastroenterology
DX: K86.1 Other chronic pancreatitis (principal); Z98.1 Arthrodesis status
CPT/HCPCS: 36415; 74177; 82565; 84520; Q9967

== ENCOUNTER → 2022-02-01 11:15 | Outpatient (CLI) | payer MEDICARE, OTHER, SELFPAY ==
[2022-02-01 12:07] LABS: COVID19 -Nasal RAPID Negative (Negative)
== END ==
PROVIDERS: PCP Student in an Organized Health Care Education/Training Program; Referring Provider Internal Medicine; Visit Provider Internal Medicine
DX: Z20.822 Contact with and (suspected) exposure to COVID-19 (principal)
CPT/HCPCS: 87635; C9803

== ENCOUNTER → 2022-02-01 11:17 | Outpatient (CLI) | payer MEDICARE, OTHER, SELFPAY ==
--- NOTE | 2022-02-07 09:35 | PM.PFT.1 ---
Pulmonary Function Test Referral & Results Date Patient Seen: 02/01/22 Requesting provider: Lauro Mo Results: The spirometry demonstrates an FVC of 3.75 L which is 85% of predicted. The FEV1 was measured at 2.23 L which is 91% of predicted. The FEV1/FVC ratio was 81 which is 107% of predicted. Following the administration of bronchodilator there was a 12% improvement in FEF 25-75%. Lung volumes show an SVC of 3.01 L which is 97% of predicted. The diffusing capacity was measured at 17.54 which is 61% of predicted. No hemoglobin value was provided, so no correction for potential anemia could be made, if appropriate. The maximum voluntary ventilation was normal Interpretation: This study demonstrates normal spirometry but moderate reduction diffusing capacity suggesting disease at the capillary alveolar level
== END ==
PROVIDERS: PCP Student in an Organized Health Care Education/Training Program; Referring Provider Student in an Organized Health Care Education/Training Program; Visit Provider Student in an Organized Health Care Education/Training Program
DX: J44.9 Chronic obstructive pulmonary disease, unspecified (principal); F17.210 Nicotine dependence, cigarettes, uncomplicated; J98.8 Other specified respiratory disorders; Z20.822 Contact with and (suspected) exposure to COVID-19
CPT/HCPCS: 87635; 94060; 94726; 94729; C9803

== ENCOUNTER 2022-04-15 20:53 | Emergency (ER) | payer MEDICARE, OTHER, SELFPAY ==
[2022-04-15 21:01] VITALS: BP 126/70; PULSE 75; RESP 24; TEMP 36.6; O2SAT 100
--- NOTE | 2022-04-15 21:43 | DI.RAD.S_ITS ---
PROCEDURE: XR ACUTE ABDOMEN SERIES INDICATIONS: abdominal pain TECHNIQUE: One view chest and two views of the abdomen were acquired. COMPARISON: None. FINDINGS: Surgical changes and devices: Multilevel lumbar fusion hardware. Chest: The lungs are hyperexpanded with diffuse coarsening of the interstitial markings, likely emphysema or asthma. No acute consolidations, effusion, or pneumothorax. Cardiomediastinal contour is normal. Abdomen: Bowel gas pattern is normal. Slightly increased amount of distal colon and rectal stool. No suspicious calcifications. Visualized solid organ contours appear normal. Bones: No suspicious bony lesions. Right SI joint ankylosis. IMPRESSION: 1. Mild distal colonic and rectal obstipation. 2. Otherwise nonobstructive bowel gas pattern. 3. Emphysema or asthma. Dictated by: Nelli Campos M.D. on 04/15/2022 at 22:49 Approved by: Nelli Campos M.D. on 04/15/2022 at 22:51
[2022-04-16 00:16] VITALS: PULSE 71; O2SAT 98
[2022-04-16 00:18] VITALS: BP 109/48; PULSE 70; O2SAT 100
[2022-04-16 00:30] VITALS: PULSE 67; O2SAT 97
--- NOTE | 2022-04-16 02:08 | ED.GENADULT ---
HPI - General Adult General Chief complaint: Abdominal Pain Stated complaint: BOWEL BLOCKAGE 4 DAYS ABD PAIN Time Seen by Provider: 04/15/22 21:43 Source: patient Mode of arrival: Ambulatory History of Present Illness HPI narrative: 76-year-old woman with a long history of multiple sclerosis and chronic pain for which she has multiple fentanyl patches. She has 4 bowel tone overall typically uses MiraLax but had skipped a couple of days and found that she has become quite constipated. She is having significant rectal pain with the strain of trying to move her bowels and has not been very successful. She comes in for further assistance. She complains of abdominal pain and cramping. She has taken extra MiraLax but is finding that she is just having stool leaking out rather than any significant bowel movement. She denies fever, cough, chills, vomiting. Feels that her MS is at its baseline. Related Data Home Medications Medication Instructions Recorded Confirmed ALBUTEROL SULFATE (Ventolin / 0 INH PRN ##0 02/21/06 Proventil) CLONAZEPAM (Klonopin) 0 PO PRN ##0 02/21/06 Cetirizine Hydrochloride (Zyrtec) 10 mg PO ##0 02/21/06 Esomeprazole Magnesium (Nexium) 40 mg PO BID ##0 02/21/06 FLUTIC/SALMET 100/50 MCG (Advair 1 dose INH BID ##0 02/21/06 100-50 Diskus) FUROSEMIDE (Lasix) 20 PO Q DAY ##0 02/21/06 HYOSCYAMINE SULFATE (Levsin) 0.125 mg PO Q4HP ##0 02/21/06 Oxycodone (Roxicodone) 5 mg PO PRN ##0 02/21/06 POTASSIUM CHLORIDE (K-Dur) 40 meq PO BID ##0 02/21/06 Venlafaxine Hydrochloride (Effexor) 75 mg PO Q DAY ##0 02/21/06 [AVINZA] 3 OR BID ##0 02/21/06 [COPAXINE] IM Q DAY ##0 02/21/06 [PROVIGIL] PRN ##0 02/21/06 Previous Rx's Medication Instructions Recorded ketorolac 10 mg tablet 10 mg PO Q6H PRN pain #14 tabs 10/17/19 Allergies Allergy/AdvReac Type Severity Reaction Status Date / Time baclofen Allergy Severe Hallucinati Verified 10/17/19 14:47 ng levofloxacin [From Levaquin] Allergy Severe Joint Pain Verified 10/17/19 14:47 Penicillins Allergy Severe Hives Verified 10/17/19 14:46 Sulfa (Sulfonamide Allergy Severe Anaphylaxis Verified 10/17/19 14:47 Antibiotics) Review of Systems Review of Systems Narrative: Remainder of complete review of systems is otherwise unremarkable except for that included in the HPI. Patient History Medical History (Updated 04/16/22 @ 05:16 by Georgina Velez MD) Multiple sclerosis tobacco type: cigars Substance Use Type: does not use Exam Initial Vital Signs Initial Vital Signs: Vital Signs Temperature 97.8 F 04/15/22 21:01 Pulse Rate 75 04/15/22 21:01 Respiratory Rate 24 04/15/22 21:01 Blood Pressure 126/70 04/15/22 21:01 Pulse Oximetry 100 04/15/22 21:01 Oxygen Delivery Method 04/15/22 21:01 General: Chronically ill-appearing with mild abdominal discomfort. Able to give a complete and coherent history. HEENT: Moist mucous membranes, normal sclera with reactive pupils, Neck: No JVD, supple Respiratory: Lungs are clear to auscultation, no wheezing no rales no rhonchi. Full and symmetrical air movement Cardiac: Regular rate and rhythm no murmurs no bruits Abdomen: Soft, loss or abdominal tenderness without rebound or guarding, hyperactive bowel tones, no flank pain. Rectal exam: Poor overall rectal tone, moderate amount of soft stool. Skin: Warm and dry, no rashes Neurologic: Grossly neurologically intact with no obvious asymmetries or abnormalities Extremities: No trauma, well perfused Psych: Cooperative, appropriate insight and affect Course Orders Ordered: ED Orders 04/15/22 21:43 XR acute abdomen series Stat Discontinued Medications Lidocaine HCl (Lidocaine Jelly 2% 5 Ml) 1 applic TOP NOW ONE Stop: 04/16/22 02:22 Last Admin: 04/16/22 03:07 Dose: 1 applic Documented By: BILLY Mineral Oil (Mineral Oil 1 Each Enema) 1 each LA NOW ONE Stop: 04/16/22 02:22 Ondansetron HCl (Ondansetron 4 Mg Odt) 4 mg SL NOW ONE Stop: 04/16/22 02:47 Last Admin: 04/16/22 03:07 Dose: 4 mg Documented By: BILLY Vital Signs Vital signs: Vital Signs - 8 hr 04/16/22 00:16 04/16/22 00:18 04/16/22 00:18 Pulse Rate 71 70 Blood Pressure 109/48 L Pulse Oximetry 98 100 04/16/22 00:30 04/16/22 03:22 Pulse Rate 67 73 Blood Pressure Pulse Oximetry 97 Medical Decision Making [facility] Narrative Medical decision making narrative: 76-year-old woman with multiple sclerosis chronic bowel issues has gotten behind on her bowel regimen and is constipated. Soft stool unable to do complete disimpaction. She is given an enema and has significant positive response. She is feeling much better, there is no evidence of significant bowel obstruction or other life-threatening abnormality at this time. She is safe for home discharge Discharge Plan Departure Patient Disposition: Home Clinical Impression: Constipation, Abdominal pain Instructions: DI for Constipation Activity Restrictions/Additional Instructions: Thank you for coming in today With an enema he had a large volume of stool and I think that we have helped you empty out your colon. It will be important for you to make sure you restart your daily MiraLax regimen so that you do not end up with continued constipation issues. The remainder of your workup was very reassuring, there is no evidence of infection or bowel obstruction. If you find that you are getting worse or develop any new symptoms, please feel free to return to the emergency department for further evaluation. Prescriptions: No Action [AVINZA] 3 OR BID Qty: 0 Esomeprazole Magnesium (Nexium) 40 mg PO BID Qty: 0 [COPAXINE] IM Q DAY Qty: 0 FUROSEMIDE (Lasix) 20 PO Q DAY Qty: 0 POTASSIUM CHLORIDE (K-Dur) 40 meq PO BID Qty: 0 Venlafaxine Hydrochloride (Effexor) 75 mg PO Q DAY Qty: 0 HYOSCYAMINE SULFATE (Levsin) 0.125 mg PO Q4HP Qty: 0 CLONAZEPAM (Klonopin) 0 PO PRN Qty: 0 Cetirizine Hydrochloride (Zyrtec) 10 mg PO Qty: 0 [PROVIGIL] PRN Qty: 0 Oxycodone (Roxicodone) 5 mg PO PRN Qty: 0 ALBUTEROL SULFATE (Ventolin / Proventil) 0 INH PRN Qty: 0 FLUTIC/SALMET 100/50 MCG (Advair 100-50 Diskus) 1 dose INH BID Qty: 0 ketorolac 10 mg tablet 10 mg PO Q6H PRN (Reason: pain) Qty: 14 0RF Referrals: Lauro Mo DO [Primary Care Provider] -
[2022-04-16] MEDS: ONDANSETRON 4 MG ODT SL (03:07)
[2022-04-16] MEDS: LIDOCAINE JELLY 2% 5 ML 1 APPLIC TOP (03:07)
[2022-04-16 03:22] VITALS: PULSE 73
--- NOTE | 2022-04-16 03:55 | PC.NURSE ---
mineral oil not given, soap suds enema given per Dr. Velez, unable to chart on MAR
--- NOTE | 2022-04-16 05:24 | PC.NURSE ---
RN administered soap suds enema, pt tolerated well. Pt had a large bowel movement 30 minutes after installation
== END 2022-04-16 05:27 | disposition home or self-care (01) ==
PROVIDERS: Emergency Provider Emergency Medicine; PCP Student in an Organized Health Care Education/Training Program
DX: K59.00 Constipation, unspecified (principal); R10.9 Unspecified abdominal pain
CPT/HCPCS: 74022; 99283

== ENCOUNTER → 2024-02-18 10:38 | Outpatient (CLI) | payer MEDICARE, OTHER, SELFPAY ==
--- NOTE | 2024-02-18 10:41 | DI.US.S_ITS ---
PROCEDURE: US ABDOMEN LIMITED INDICATIONS: ELEV SERUM ENZYMES TECHNIQUE: Real-time scanning was performed of the abdominal and retroperitoneal organs, with image documentation. COMPARISON: Outside Film, CT, CT ABDOMEN PELVIS WITHOUT CONTRAST, 10/05/2023, 15:12. FINDINGS: Liver: Liver is normal in size and homogeneous in echotexture. Gallbladder: Absent. Biliary ducts: Intrahepatic bile ducts are non-dilated. Extrahepatic bile duct caliber measures 3 mm. Normal is 6-7 mm or less in diameter, or 10 mm or less post-cholecystectomy. Pneumobilia, stable from prior. Pancreas: Not seen due to overlying bowel gas. Miscellaneous: No free abdominal fluid. Normal appearance of the kidney. IMPRESSION: Pneumobilia, stable from prior, and likely sequela of sphincterotomy. No acute abnormality otherwise. Dictated by: Kb Talbert M.D. on 02/18/2024 at 12:31 Approved by: Kb Talbert M.D. on 02/18/2024 at 12:34
== END ==
LOC: US 10:39
PROVIDERS: PCP Nurse Practitioner Family; Referring Provider Nurse Practitioner Family; Visit Provider Nurse Practitioner Family
DX: K83.8 Other specified diseases of biliary tract (principal); R74.8 Abnormal levels of other serum enzymes; Z90.49 Acquired absence of other specified parts of digestive tract
CPT/HCPCS: 76705

== ENCOUNTER → 2024-02-26 09:27 | Outpatient (CLI) | payer MEDICARE, OTHER, SELFPAY ==
--- NOTE | 2024-02-26 09:29 | DI.NM.S_ITS ---
PROCEDURE: NM BOBBI PERF SPECT R&S PHARM Rest and pharmacological stress myocardial perfusion SPECT with gated imaging and ejection fraction RADIOPHARMACEUTICAL: 9.6 mCi Tc-99m tetrafosmin IV at rest and 26.4 mCi Tc-99m tetrafosmin IV at peak effect of pharmacological stress. A [id number] was performed. INDICATIONS: Syncope and collapse TECHNIQUE: Radiopharmaceutical was injected at peak stress test, and also at rest. SPECT images were obtained. SPECT myocardial perfusion images were displayed in short axis, horizontal long axis, and vertical long axis views. Gated images were reviewed using Parse software. COMPARISON: None. CARDIAC STRESS: A pharmacologic stress test was performed under the supervision of an attending staff, using an infusion of regadenoson 0.4 mg IV. Hemodynamic data: There is normal blood pressure and heart rate response to pharmacologic stress. Symptoms: The patient denied anginal chest pain. EKG: No diagnostic changes of ischemia; no ectopy. FINDINGS: Raw data: There is good myocardial uptake of radiotracer. No significant motion artifacts. Dpxu-vy-fyojo ratio is 0.30 (normal is less than 0.38 for tetrafosmin tracer). Left ventricle function: Gated images demonstrate normal left ventricular wall thickening. No segmental wall motion abnormalities. No transient ischemic dilation; TID is 0.98 (normal less than 1.3). Left ventricle resting end diastolic volume is 116 mL. Left ventricle stress ejection fraction is >75%; normal range is above 45%. Myocardial perfusion: There is normal distribution of activity in the right and left ventricular myocardium. No fixed or reversible perfusion defects. IMPRESSION: Low risk study. No evidence of pharmacologic induced ischemia or scar. Normal LV size with hyperdynamic function. Dictated by: Renetta Reyez D.O. on 02/26/2024 at 16:18 Approved by: Renetta Reyez D.O. on 02/26/2024 at 16:20
--- NOTE | 2024-02-26 09:29 | DI.ECHO.S_ITS ---
[facility] +---------+ [facility] : : [address] : : [place] : : [id number] : : Phone: [phone] Echocardiogram Report + + :Name: MICHAEL HOFFMAN Study Date: 02/26/2024 Height: 66 in : :[facility] ReadingLocation: Weight: 125 lb : : Gender: Female BSA: 1.6 m2 : :: 1945 Age: 78 yrs BP: 166/88 mmHg: :Reason For Study: SYNCOPE AND COLLAPSE : :Ordering Physician: KANA, : :ALIZA Performed By: Karina Negrete : :Referring: ALIZA STAPLES : + + Interpretation Summary 1. The left ventricular contractility is normal. Estimated ejection fraction is greater than 55% with no segmental wall motion abnormalities. No LVH. Grade 1 diastolic dysfunction present. 2. The right ventricle contractility is normal. 3. Both atria are dilated. The right and left ventricular cavities are of normal size. 4. There is moderate mitral annular calcification noted. Mild mitral regurgitation noted. 5. No other significant valvular abnormalities appreciated. 6. No obvious intracardiac shunts noted. 7. No obvious intracardiac masses nor thrombi appreciated. 8. No hemodynamically significant pericardial effusion present. Conclusion: Normal biventricular systolic function with no significant valvular abnormalities. Procedure: A two-dimensional transthoracic echocardiogram with color flow and Doppler was performed. The study quality was technically adequate. There is no prior echocardiogram noted for this patient. The patient was in sinus rhythm with heart rates between 58-62 bpm during the exam. Left Ventricle: The left ventricle is normal in size and wall thickness. The ejection fraction is estimated to be 60-65%. Right Ventricle: The right ventricle is normal in size and function. Atria: The left atrium is severely dilated. The right atrium is mildly dilated. There is no Doppler evidence for an interatrial shunt. Mitral Valve: There is moderate mitral annular calcification. The mitral valve leaflets appear mildly thickened, but open well. There is mild mitral regurgitation. Aortic Valve: The aortic valve is trileaflet. The aortic valve opens well. There is no aortic valve stenosis. No aortic regurgitation is present. Tricuspid Valve: The tricuspid valve is normal in structure and function. There is trace tricuspid regurgitation. Pulmonic Valve: The pulmonic valve leaflets are thin and pliable; valve motion is normal. There is trace pulmonic regurgitation. Great Vessels: The aortic root is normal size. The dimensions of the ascending aorta are normal. The IVC is of normal diameter and collapses greater than 50% with a sniff. This suggests a low right atrial pressure of 3 mm Hg. Pericardium/ Pleura There is no pericardial effusion. There is no pleural effusion. MMode/2D Measurements & Calculations LVIDd: 4.6 cm LVOT diam: 2.0 cm LVIDs: 2.9 cm Ao root diam: 3.1 cm FS: 37.2 % asc Aorta Diam: 3.4 cm EPSS: 0.47 cm Ao Arch Diam (Prox Trans): 2.6 cm IVSd: 0.78 cm LVPWd: 0.82 cm LV cotter. diameter/BSA (cm/m^2): 2.8 LV sys. diameter/BSA (cm/m^2): 1.8 LA A2 area: 29.0 cm2 RA long axis: 5.6 cm LA A4 area: 22.7 cm2 RA area: 21.2 cm2 LA length (vol): 6.1 cm RA vol: 68.1 ml LA vol: 92.4 ml RA : 41.6 ml/m2 LA vol index: 56.4 ml/m2 IVC diam: 1.9 cm RVD1 (basal): 3.9 cm TAPSE: 2.2 cm Doppler Measurements & Calculations Ao V2 max: 161.2 cm/sec LVOT Max Neel: 108.5 cm/sec Ao V2 mean: 103.1 cm/sec LV V1 max P.7 mmHg Ao max P.4 mmHg LV V1 VTI: 29.1 cm Ao mean P.9 mmHg SHEILA(I,D): 2.3 cm2 Ao V2 VTI: 38.7 cm SHEILA(V,D): 2.0 cm2 sev ratio: 0.75 SHEILA indexed to BSA (cm^2/m^2): 1.4 MV E max neel: 111.3 cm/sec TR max neel: 231.2 cm/sec MV A max neel: 80.9 cm/sec TR max P.4 mmHg MV E/A: 1.4 PA V2 max: 96.0 cm/sec Med Peak E' Neel: 6.2 cm/sec PA V2 mean: 72.1 cm/sec E/E' med: 18.1 PA mean P.2 mmHg Lat Peak E' Neel: 8.4 cm/sec PA pr(Accel): 20.8 mmHg E/E' lat: 13.2 E/e' average: 15.6 MV dec time: 0.18 sec MVA(VTI): 2.1 cm2 MV V2 mean: 75.2 cm/sec SV(LVOT): 87.6 ml MV mean P.6 mmHg MV V2 VTI: 42.1 cm Reading Physician:
== END ==
PROVIDERS: PCP Nurse Practitioner Family; Referring Provider Internal Medicine Cardiovascular Disease; Visit Provider Internal Medicine Cardiovascular Disease
DX: I34.81 Nonrheumatic mitral (valve) annulus calcification (principal); I34.0 Nonrheumatic mitral (valve) insufficiency; R06.09 Other forms of dyspnea; I73.9 Peripheral vascular disease, unspecified; R55 Syncope and collapse; R00.2 Palpitations; R01.1 Cardiac murmur, unspecified; E78.5 Hyperlipidemia, unspecified
CPT/HCPCS: 78452; 93017; 93306; A9502; J2785